=== PATIENT | female | born 1990 | race Caucasian/White ===

== ENCOUNTER 2016-12-30 04:40 | Inpatient (IN) | payer OTHER ==
[~2016-12-30] VITALS: Ht 152.4 cm; Wt 79.4 kg
[2016-12-30] MEDS ORDERED: LACTATED RINGERS 1,000 ML IV SCH (05:14)
[2016-12-30] MEDS ORDERED: IBUPROFEN 800 MG TAB PO PRN ×2 (05:15→18:20)
[2016-12-30 05:21] VITALS: BP 119/86
[2016-12-30 06:46] LABS: BASOPHILS % (AUTO) 0.4 % (0.0-2.0); EOSINOPHILS # (AUTO) 0.2 K/uL (0-0.4); EOSINOPHILS % (AUTO) 1.6 % (0.0-4.0); HEMOGLOBIN 10.4 g/dL (12.0-16.0); LYMPHOCYTES # (AUTO) 2.5 K/uL (2.5-16.5); LYMPHOCYTES % (AUTO) 23.7 % (20.5-51.1); MEAN CORPUSCULAR HEMOGLOBIN 30 pg (27-31); MEAN CORPUSCULAR HGB CONC 34 g/dL (33-37); MEAN CORPUSCULAR VOLUME 88 fL (80-94); MONOCYTES # (AUTO) 0.7 K/uL (0.8-1.0); MONOCYTES % (AUTO) 6.9 % (1.7-9.3); NEUTROPHILS % (AUTO) 67.4 % (42.2-75.2); PLATELET COUNT (AUTO) 290 K/uL (140-450); RED BLOOD CELL COUNT(AUTO) 3.52 MIL/uL (4.20-5.40); RED CELL DISTRIBUTION WIDTH 11.8 % (11.6-13.7); WHITE BLOOD COUNT (AUTO) 10.4 K/uL (4.8-10.8)
[2016-12-30 07:04] LABS: BILIRUBIN,URINE NEGATIVE (NEGATIVE); BLOOD, URINE NEGATIVE (NEGATIVE); COLOR,URINE YELLOW (YELLOW); LEUKOCYTE ESTERASE ,URINE 2+ (NEGATIVE); NITRITE, URINE NEGATIVE (NEGATIVE); PROTEIN,URINE NEGATIVE (NEGATIVE); UGLUCOSE NEGATIVE (NEGATIVE); UROBILINOGEN,URINE 0.2 EU/dL (0.2 - 1)
[2016-12-30] MEDS ORDERED: OXYTOCIN 10 UNITS/ML VIAL ONE ×3 (07:04→07:25)
[2016-12-30] MEDS ORDERED: BUPIVACAINE-MPF 0.75% 10 ML VIAL INJ ONE (07:04)
[2016-12-30] MEDS ORDERED: ceFAZolin 1,000 MG VIAL ONE (07:12)
[2016-12-30 07:27] LABS: APPEARANCE,URINE HAZY (CLEAR)
[2016-12-30 07:28] LABS: BACTERIA,URINE 1+ /HPF (None Seen); RBC,URINE 0-5 (RARE) /HPF (0-5); YEAST,URINE Few /HPF (None Seen)
[2016-12-30] MEDS ORDERED: MORPHINE PRES FREE 10 MG/10 ML AMP IV ONE (07:31)
[2016-12-30] MEDS ORDERED: fentaNYL 0.05 MG/ML VIAL ONE (07:31)
[2016-12-30] MEDS ORDERED: NALOXONE 0.4 MG/ML VIAL IVP PRN ×3 (07:50)
[2016-12-30] MEDS ORDERED: NALBUPHINE 10 MG/ML AMP IVP PRN (07:50)
[2016-12-30] MEDS ORDERED: KETOROLAC 60 MG/2 ML VIAL IM PRN (07:50)
[2016-12-30] MEDS ORDERED: ONDANSETRON 4 MG/2 ML VIAL IVP PRN ×2 (07:50)
[2016-12-30] MEDS ORDERED: diphenhydrAMINE 50 MG/ML VIAL IVP PRN (07:50)
[2016-12-30] MEDS ORDERED: OXYTOCIN 20 UNITS/LR PREMIX 1,000 ML IV ONE ×2 (07:57→17:46)
[2016-12-30] MEDS ORDERED: ONDANSETRON 4 MG/2 ML VIAL ONE (07:57)
--- NOTE | 2016-12-30 09:54 | NUR ---
PATIENT HAS BEEN SCREENED AND CATEGORIZED LOW NUTRITION RISK. PATIENT WILL BE SEEN WITHIN 7 DAYS OF ADMISSION. 01/05/[address]
[2016-12-30] MEDS ORDERED: MEASLES, MUMPS, AND RUBELLA 1 VIAL SQVAC PRN (18:20)
[2016-12-30] MEDS ORDERED: METHYLERGONOVINE 0.2 MG/ML AMP IM PRN (18:20)
[2016-12-30] MEDS ORDERED: TEMAZEPAM 15 MG CAP PO PRN (18:20)
[2016-12-30] MEDS ORDERED: SIMETHICONE 80 MG TAB.CHEW PO PRN (18:20)
[2016-12-30] MEDS ORDERED: TRIMETHOBENZAMIDE 200 MG/2 ML SYR IM PRN (18:20)
[2016-12-30] MEDS ORDERED: oxyCODONE/APAP 5/325 MG 1 TAB TAB PO PRN (18:20)
[2016-12-30] MEDS ORDERED: HYDROcodone/APAP 5/325 MG 1 TAB TAB PO PRN (18:20)
[2016-12-30] MEDS: OXYTOCIN 20 UNITS/LR PREMIX 1,000 ML IV SCH (18:25)
[2016-12-30] MEDS ORDERED: DOCUSATE SOD/SENNA 50/8.6 MG 1 TAB PO SCH (21:00)
[2016-12-31] MEDS: OXYTOCIN 20 UNITS/LR PREMIX 1,000 ML IV SCH (01:36)
[2016-12-31 05:58] LABS: BASOPHILS # (AUTO) 0.1 K/uL (0.00-0.22); BASOPHILS % (AUTO) 0.5 % (0.0-2.0); MEAN CORPUSCULAR HEMOGLOBIN 29 pg (27-31)
[2016-12-31 06:09] LABS: EOSINOPHILS # (AUTO) 0.1 K/uL (0-0.4); EOSINOPHILS % (AUTO) 1.2 % (0.0-4.0); HEMATOCRIT 28.3 % (36-48); HEMOGLOBIN 9.5 g/dL (12.0-16.0); LYMPHOCYTES % (AUTO) 17.2 % (20.5-51.1); MEAN CORPUSCULAR HGB CONC 34 g/dL (33-37); MEAN CORPUSCULAR VOLUME 87 fL (80-94); MONOCYTES # (AUTO) 0.6 K/uL (0.8-1.0); MONOCYTES % (AUTO) 5.7 % (1.7-9.3); NEUTROPHILS # (AUTO) 8.6 K/uL (1.8-7.7); NEUTROPHILS % (AUTO) 75.4 % (42.2-75.2); PLATELET COUNT (AUTO) 279 K/uL (140-450); RED BLOOD CELL COUNT(AUTO) 3.25 MIL/uL (4.20-5.40); RED CELL DISTRIBUTION WIDTH 11.4 % (11.6-13.7); WHITE BLOOD COUNT (AUTO) 11.4 K/uL (4.8-10.8)
== END 2017-01-01 15:15 | disposition home or self-care (01) | DRG 540 ==
LOC: MLD 04:40 → MFCC 07:20
PROVIDERS: ADMIT Obstetrics & Gynecology; ATTEND Obstetrics & Gynecology
PROC: 10D00Z1 Extraction of Products of Conception, Low, Open Approach (ICD-10-PCS; principal; 2016-12-30 07:30)
DX: O34.211 Maternal care for low transverse scar from previous cesarean delivery (principal); O99.824 Streptococcus B carrier state complicating childbirth; Z3A.39 39 weeks gestation of pregnancy; Z28.21 Immunization not carried out because of patient refusal; Z37.0 Single live birth
CPT/HCPCS: 36415; 51702; 81001; 85025; 86592; 86886; 86900; 86901; 87086; J0690; J2270; J2405; J2590; J3010; J3490; J7060; J7120